=== PATIENT | female | born 1965 | race Two or more races ===

== ENCOUNTER 2019-02-18 04:20 | Emergency (ER) | payer OTHER ==
[~2019-02-18] VITALS: Ht 167.6 cm; Wt 148.3 kg
[2019-02-18] MEDS ORDERED: IPRATRPIUM/ALBUTEROL 0.5/2.5MG 3 ML NEBU. NEB ONE ×2 (04:45→06:00)
[2019-02-18] MEDS ORDERED: DEXAMETHASONE 4 MG TABLET PO ONE (04:45)
[2019-02-18] MEDS ORDERED: BUTALB/APAP/CAFEIN 50/325/40MG TABLET. PO ONE (05:15)
--- NOTE | 2019-02-18 05:17 | RAD ---
PA and lateral chest radiographs 02/18/2019 CLINICAL HISTORY: Cough. PA and lateral digital radiographs of chest were obtained. The cardiac silhouette is mildly enlarged. The thoracic aorta is mildly tortuous. No acute pulmonary infiltrate is seen. No pleural effusion or pneumothorax is noted. Degenerative changes are seen involving the thoracic spine. IMPRESSION: No acute abnormality is seen. Electronically signed by: Tye Irvin MD (02/18/2019 5:14 AM) [facility]
[2019-02-18] MEDS ORDERED: cloNIDine HCL 0.1 MG TABLET PO ONE (05:30)
--- NOTE | 2019-02-18 05:30 | PHYS DOC ---
Past Medical History Past Medical History: Diabetes-Type II, Hypertension Past Surgical History: No Surgical History Additional Information: Nonsmoker Alcohol Use: None Drug Use: None Adult General Chief Complaint Chief Complaint: COUGH HPI HPI Patient is a 53-year-old female who presents with cough and shortness of breath. Yesterday she went to her primary care doctor and was diagnosed with bronchitis and was given albuterol, Augmentin, and Benzonatate. Her primary care doctor told her to come to the emergency department if her symptoms get worse. Today she her shortness of breath and cough got worse, and she got a headache. Currently her headache is severe throughout her entire head and she is having ear pain and nasal congestion with some drainage. She tried Tylenol for the pain but it only comes a little. Currently her pain is 10/10. She had a fever last night. Her cough is getting worse and she is producing a green and bloody thick mucus. She is having difficulty breathing with wheezing. She has no history of headaches. Review of Systems Review of Systems Constitutional: Reports fever and chills Eyes: Denies redness or eye pain HENT: Reports nasal congestion and sore throat Respiratory: Reports cough and shortness of breath Cardiovascular: Denies chest pain or palpitations GI: Denies abdominal pain, nausea, or vomiting : Denies dysuria or hematuria Musculoskeletal: Denies back pain or joint pain Integument: Denies rash or skin lesions Neurologic: Denies headache, focal weakness or sensory changes Complete systems were reviewed and found to be within normal limits, except as documented in this note. Current Medications Current Medications Current Medications Medications (Trade) Dose Ordered Sig/Alberto Start Time Stop Time Status Last Admin Dose Admin Acetaminophen/ Butalbital/ Caffeine (Fioricet) 1 tab 1X ONCE 02/18/19 05:15 02/18/19 05:16 DC 02/18/19 05:27 1 TAB Albuterol/ Ipratropium (Duoneb) 3 ml 1X ONCE 02/18/19 06:00 02/18/19 06:01 DC 02/18/19 06:00 3 ML Clonidine HCl (Catapres) 0.1 mg 1X ONCE 02/18/19 05:30 02/18/19 05:31 DC 02/18/19 05:26 0.1 MG Dexamethasone (Decadron) 10 mg ONCE ONCE 02/18/19 04:45 02/18/19 04:46 DC 02/18/19 05:24 10 MG Allergies Allergies Allergies Coded Allergies Type Severity Reaction Last Updated Verified No Known Drug Allergies 02/18/19 No Physical Exam Physical Exam Constitutional: Well developed, well nourished, acutely distressed due to difficulty breathing, non-toxic appearance HENT: Normocephalic, atraumatic, oropharynx moist, tympanic membrane intact without erythema Eyes: PERRL, EOMI, conjunctiva normal, no discharge Neck: Normal range of motion, no tenderness, supple Cardiovascular: Heart rate normal, regular rhythm Lungs & Thorax: Bilateral breath sounds present, no crackles, wheezing present. Many upper airway sounds. Abdomen: Soft, no tenderness Skin: Warm, dry, no erythema, no rash Back: No tenderness, no CVA tenderness Extremities: No tenderness, ROM intact, no edema Neurologic: Alert and oriented X 3, normal motor function, normal sensory function, no focal deficits noted Psychologic: Affect normal, judgement normal, mood normal Current Patient Data Vital Signs Vital Signs Date Time Temp Pulse Resp B/P (MAP) Pulse Ox O2 Delivery O2 Flow Rate FiO2 02/18/19 06:11 93 Room Air 02/18/19 05:26 100 194/90 02/18/19 04:30 98.8 44 98.8 EKG EKG [] Radiology/Procedures Radiology/Procedures PROCEDURE: CHEST PA & LATERAL PA and lateral chest radiographs 02/18/2019 CLINICAL HISTORY: Cough. PA and lateral digital radiographs of chest were obtained. The cardiac silhouette is mildly enlarged. The thoracic aorta is mildly tortuous. No acute pulmonary infiltrate is seen. No pleural effusion or pneumothorax is noted. Degenerative changes are seen involving the thoracic spine. IMPRESSION: No acute abnormality is seen. Electronically signed by: Tye Irvin MD (02/18/2019 5:14 AM) [facility] Course & Med Decision Making Course & Med Decision Making Pertinent Labs and Imaging studies reviewed. (See chart for details) Patient is a 53-year-old female who presents with shortness of breath and cough. Yesterday she saw her primary care physician diagnosed with bronchitis. She was given Augmentin, albuterol, and Benzonatate. Her symptoms have worsened since she saw her doctor yesterday. She is now having a headache that is generalized, rated a 10/10, and not significantly improving with acetaminophen. She is also having ear pain and nasal congestion. Her cough is worsening and she is coughing up thick mucus that is green and red tinged. She is having worsening shortness of breath. Chest x-ray is negative for pneumonia. Her symptoms improved with two duonebs and Fioricet. She is prescribed Prednisone and Fioricet for bronchitis and headache. Patient stable for discharge with outpatient follow-up with PCP. Discussed findings and plan with patient and family, who acknowledge understanding and agreement. [] Dragon Disclaimer Dragon Disclaimer This electronic medical record was generated, in whole or in part, using a voice recognition dictation system. Departure Departure Impression: Primary Impression: Bronchitis Disposition: 01 HOME, SELF-CARE Condition: STABLE Referrals: NO PCP (PCP) Patient Instructions: Acute Bronchitis, [id number] Additional Instructions: Continue previously prescribed antibiotics and use of inhaler. Use spacer provided in ED with your inhaler. Scripts Prednisone (PREDNISONE) 20 Mg Tablet 20 MG PO DAILY for Bronchitis for 4 Days, #8 TAB Prov: KAE MORGAN DO 02/18/19 Butalb/Acetaminophen/Caffeine ([id number] [id number]) 1 Each Tablet 1 EACH PO Q6HRS PRN for HEADACHE for 14 Days, #1 TAB Prov: KAE MORGAN DO 02/18/19 KAE MORGAN DO Feb 18, 2019 05:30
[2019-02-18 05:59] VITALS: BP 172/85
[2019-02-18] MEDS ORDERED: BUTA1TAB23 PO (06:04)
[2019-02-18] MEDS ORDERED: PRED20TA PO ×2 (06:04→06:08)
== END 2019-02-18 06:27 | disposition home or self-care (01) ==
LOC: ER 04:20
DX: J40 Bronchitis, not specified as acute or chronic (principal); R51 Headache; H92.09 Otalgia, unspecified ear; E11.9 Type 2 diabetes mellitus without complications; I10 Essential (primary) hypertension
CPT/HCPCS: 71046; 94640; 99285; J7620; J8540; 99284